=== PATIENT | female | born 1980 | race Caucasian/White ===

== ENCOUNTER 2022-04-30 21:16 | Inpatient (IN) ==
[2022-04-30] MEDS ORDERED: Furosemide 40 mg/4 ml IV VIAL IV ONE (21:24)
[2022-04-30] MEDS ORDERED: Albuterol/Ipratropium NEB.SOL (2.5/0.5 MG) 3 ML NEB.SOLN INH ONE (21:32)
[2022-04-30] MEDS ORDERED: methylPREDNISolone SOD SUCC 125 mg 2 ML VIAL IV ONE (21:32)
[2022-04-30] MEDS ORDERED: Piperacillin/Tazobac ADVAN 3.375 GM in NS 0.9% 100 ml BAG 100 ML IV ONE (21:33)
[2022-04-30] MEDS ORDERED: Lorazepam PYXIS KEY PRN (21:35)
[2022-04-30] MEDS ORDERED: LORazepam 2 mg VIAL 1 ml IV PUSH ONE (21:35)
[2022-04-30 21:49] LABS: PCO2 Arterial 32 mmHg (35-45); PO2 Arterial 180 mmHg (80-100)
[2022-04-30 22:02] LABS: Hematocrit 26 % (35-47); Hemoglobin 7.3 g/dL (12.0-16.0); Mean Corpuscular HGB Conc 29 g/dL (31-36); Mean Corpuscular Hemoglobin 21 pg (27-31); Mean Corpuscular Volume 74 fL (80-97); Mean Platelet Volume 8.8 fL (7.4-10.4); Platelet Count 173 10^3/uL (150-450); Red Blood Count 3.47 10^6 /uL (3.70-4.87); Red Cell Distribution Width 24 % (10-15); White Blood Count 9.6 10^3/uL (3.5-10.8)
[2022-04-30] MEDS ORDERED: Piperacillin/Tazobac 3.375 GM BAG ONE (22:04)
[2022-04-30 22:17] LABS: High Sens Troponin Baseline 19 pg/mL (<15)
[2022-04-30 22:25] LABS: Hypochromasia 2+; Microcytosis 2+
[2022-04-30 22:26] LABS: ABS Eosinophils 0.1 10^3/ul (0-0.6); ABS Lymphocytes 1.1 10^3/ul (1.0-4.8); ABS Monocytes 0.8 10^3/ul (0-0.8); ABS Neutrophils 7.6 10^3/ul (1.5-7.7); Anisocytosis 2+; Eosinophil % 0.6 %; Lymphocyte % 11.6 %; Nucleated Red Blood Cells % 0.4; Polychromasia 1+
[2022-04-30] MEDS ORDERED: HYDROmorphone 1 MG/1 ML SYRINGE IV ONE (22:44)
[2022-04-30 22:45] LABS: ALT 30 U/L (7-52); Albumin 3.1 g/dL (3.2-5.2); Albumin/Globulin Ratio 0.8 (1-3); Alkaline Phosphatase 130 U/L (35-149); Blood Urea Nitrogen 27 mg/dL (6-24); C Reactive Protein 49.92 mg/L (<8.01); CO2 Carbon Dioxide 26 mmol/L (22-32); Calcium 7.9 mg/dL (8.6-10.3); Chloride 103 mmol/L (101-111); Creatinine, Serum 1.01 mg/dL (0.51-0.95); Globulin 3.8 g/dL (2-4); Glucose 80 mg/dL (70-100); Sodium 135 mmol/L (135-145); Total Protein 6.9 g/dL (6.4-8.9); eGFR CKD-EPI 70.8 (>60)
[2022-04-30 23:14] LABS: Anion Gap 6 mmol/L (2-11)
[2022-04-30 23:28] LABS: High Sensitivity Troponin 1 Hr 20 pg/mL (<15)
[2022-04-30 23:35] LABS: Urine Benzodiazepine Screen None Detected (None Detect); Urine Cannabinoids Screen None Detected (None Detect); Urine Opiates Screen None Detected (None Detect)
[2022-04-30] MEDS ORDERED: Iodixanol (CONTRAST) 320 MG/ML 100 ML SDV IV ONE (23:37)
[2022-04-30] MEDS ORDERED: Dexmedetomidine 1,000 MCG in NS 0.9% 250 ml 240 ML IV SCH (23:45)
[2022-04-30] MEDS ORDERED: Acetaminophen IV 1 GM/100ML 1,000 MG/100 ML BAG IV ONE (23:48)
[2022-04-30 23:51] LABS: Urine Appearance Clear; Urine Bilirubin Negative (Negative); Urine Blood Negative (Negative); Urine Color Straw; Urine Glucose Negative (Negative); Urine Ketones Negative (Negative); Urine Nitrite Negative (Negative); Urine Protein Negative (Negative); Urine Specific Gravity 1.005 (1.002-1.030); Urine Urobilinogen Negative (Negative)
[2022-04-30] MEDS ORDERED: Albuterol/Ipratropium NEB.SOL (2.5/0.5 MG) 3 ML NEB.SOLN INH PRN (23:52)
[2022-04-30 23:59] LABS: Corrected Retic Count 1.4 % (0.5-1.5); Hematocrit for Retic CNT 25 % (35-47); Immature Retic Fraction 0.65; RBC Retic Count 3.43 10^6/uL (3.70-4.87)
[2022-05-01 00:13] LABS: Prealbumin 9 mg/dL (18-38)
[2022-05-01 00:14] LABS: Iron < 20 ug/dL (50-212)
[2022-05-01 00:20] LABS: Activated Partial Thrombo Time 35.8 seconds (26.0-38.0)
[2022-05-01 00:22] LABS: Creatine Kinase 77 U/L (10-223)
[2022-05-01 00:27] LABS: Magnesium 1.7 mg/dL (1.9-2.7); Potassium Redraw 3.3 mmol/L (3.5-5.0)
[2022-05-01 00:29] LABS: TSH Ultra Thyroid Stim Horm 2.82 mcIU/mL (0.34-5.60)
[2022-05-01 00:31] LABS: Free T4 0.98 ng/dL (0.61-1.12)
[2022-05-01 00:34] LABS: Ferritin 13.9 ng/mL (11-307)
[2022-05-01 00:54] LABS: HIV 4th Generation Nonreactive (Nonreactive)
[2022-05-01] MEDS ORDERED: Zosyn per Pharmacy NOTE FOLLOW UP SCH (01:00)
[2022-05-01 01:48] LABS: Hepatitis A Ab IgM Negative (Negative); Hepatitis B Core IgM Nonreactive (Nonreactive)
[2022-05-01] MEDS ORDERED: Magnesium Sulfate IV 1GM/100ML 1 GM/100 ML BAG IV ONE (01:56)
[2022-05-01 02:00] LABS: Hepatitis B Surface Ab Not Immune (Immune); Hepatitis B Surface Antigen Nonreactive (Nonreactive)
[2022-05-01] MEDS: ZOSYN 3.375 GM Q8H per EXTENDED INFUSION IV SCH ×2 (02:08→09:24)
[2022-05-01] MEDS ORDERED: guaiFENesin 100 mg/5 ml LIQ unit dose cup PO PRN (02:55)
[2022-05-01 05:03] LABS: Hepatitis C Antibody Reactive (Negative)
[2022-05-01 05:54] LABS: Hematocrit 28 % (35-47); Hemoglobin 8.1 g/dL (12.0-16.0); Mean Corpuscular HGB Conc 29 g/dL (31-36); Mean Corpuscular Hemoglobin 22 pg (27-31); Mean Corpuscular Volume 76 fL (80-97); Mean Platelet Volume 8.4 fL (7.4-10.4); Platelet Count 128 10^3/uL (150-450); Red Blood Count 3.68 10^6 /uL (3.70-4.87); Red Cell Distribution Width 25 % (10-15); White Blood Count 6.4 10^3/uL (3.5-10.8)
[2022-05-01 06:12] LABS: INR 2.93 (0.88-1.18)
[2022-05-01 06:38] LABS: ALT 25 U/L (7-52); AST 22 U/L (13-39); Albumin/Globulin Ratio 0.9 (1-3); Alkaline Phosphatase 100 U/L (35-149); Anion Gap 6 mmol/L (2-11); Blood Urea Nitrogen 28 mg/dL (6-24); CO2 Carbon Dioxide 27 mmol/L (22-32); Calcium 7.6 mg/dL (8.6-10.3); Chloride 102 mmol/L (101-111); Creatinine, Serum 1.11 mg/dL (0.51-0.95); Globulin 3.4 g/dL (2-4); Glucose 232 mg/dL (70-100); Phosphorus 2.6 mg/dL (2.5-5.0); Potassium 3.2 mmol/L (3.5-5.0); Sodium 135 mmol/L (135-145); Total Protein 6.4 g/dL (6.4-8.9); eGFR CKD-EPI 63.2 (>60)
[2022-05-01] MEDS ORDERED: Potassium Chlor 20 meq TAB.ER PO ONE (06:42)
[2022-05-01] MEDS ORDERED: KCL 10 MEQ/50 ML IVPREMIX 10 MEQ/50 ML BAG IV ONE (06:42)
[2022-05-01] MEDS ORDERED: Vancomycin 1,000 MG in NS 0.9% 250 ml 250 ML IVPB ONE (07:42)
[2022-05-01] MEDS ORDERED: Vancomycin per Pharmacy 1 EA NOTE FOLLOW UP SCH (08:00)
[2022-05-01] MEDS ORDERED: methylPREDNISolone SOD SUCC 40 mg/ml 1 ml VIAL IV SCH (08:00)
[2022-05-01] MEDS ORDERED: methylPREDNISolone SOD SUCC 125 mg 2 ML VIAL IV SCH (09:00)
[2022-05-01] MEDS ORDERED: Cefepime 1 GM in Dextrose 1 GM/50 ML BAG IV SCH (09:00)
[2022-05-01 09:07] LABS: Folate > 20.00 ng/mL (5.90-24.80)
[2022-05-01 09:08] LABS: Vitamin B12 675 pg/mL (180-914)
[2022-05-01] MEDS: Senna TAB 8.6 mg TAB PO SCH ×2 (09:35→20:15)
[2022-05-01] MEDS: Polyethylene Glycol 3350 17 GM PACKET PO SCH (09:35)
[2022-05-01] MEDS: methylPREDNISolone SOD SUCC 40 mg/ml 1 ml VIAL IV SCH (10:04)
[2022-05-01] MEDS: DOXYcycline 100 MG in NS 0.9% 250 ml 250 ML IVPB SCH ×2 (11:05→20:19)
[2022-05-01] MEDS: guaiFENesin/CODIENE 100mg/10mg 5 ML UDC PO PRN (14:12)
[2022-05-01] MEDS: Iron Sucrose 200 MG in NS 0.9% 100 ml BAG 100 ML IVPB SCH (16:23)
[2022-05-01] MEDS: fentaNYL 100 mcg/2 ml 50 MCG/ML VIAL IV SLOW PU PRN (18:03)
[2022-05-01] MEDS: Phenol 1.4% Throat Spray BTL MT PRN (20:05)
[2022-05-01] MEDS ORDERED: HYDROmorphone 0.5 MG/0.5 ML SYRINGE IV SLOW PU ONE (20:52)
[2022-05-01] MEDS: CEFEPIME 2 GM in Dextrose 50 mL IV SCH (22:08)
[2022-05-02] MEDS: guaiFENesin/CODIENE 100mg/10mg 5 ML UDC PO PRN ×4 (00:24→23:33)
[2022-05-02] MEDS: fentaNYL 100 mcg/2 ml 50 MCG/ML VIAL IV SLOW PU PRN (05:54)
[2022-05-02 06:56] LABS: INR 1.56 (0.88-1.18)
[2022-05-02 07:23] LABS: Calcium 8.2 mg/dL (8.6-10.3); Creatinine, Serum 1.14 mg/dL (0.51-0.95); Magnesium 1.9 mg/dL (1.9-2.7); Potassium 4.3 mmol/L (3.5-5.0); eGFR CKD-EPI 61.3 (>60)
[2022-05-02 07:25] LABS: Hematocrit 31 % (35-47); Hemoglobin 8.7 g/dL (12.0-16.0); Mean Corpuscular HGB Conc 28 g/dL (31-36); Mean Corpuscular Hemoglobin 22 pg (27-31); Mean Corpuscular Volume 77 fL (80-97); Mean Platelet Volume 8.8 fL (7.4-10.4); Platelet Count 139 10^3/uL (150-450); Red Blood Count 4.02 10^6 /uL (3.70-4.87); Red Cell Distribution Width 25 % (10-15); White Blood Count 13.7 10^3/uL (3.5-10.8)
[2022-05-02 07:48] LABS: Anisocytosis 2+; Hypochromasia 2+; Microcytosis 1+; Polychromasia 1+
[2022-05-02 07:49] LABS: ABS Lymphocytes 0.8 10^3/ul (1.0-4.8); ABS Monocytes 0.7 10^3/ul (0-0.8); ABS Neutrophils 12.1 10^3/ul (1.5-7.7); ABS Nucleated RBC 0.1 10^3/ul; Lymphocyte % 6.2 %
[2022-05-02] MEDS: CEFEPIME 2 GM in Dextrose 50 mL IV SCH (07:59)
[2022-05-02] MEDS: Senna TAB 8.6 mg TAB PO SCH ×2 (09:44→20:41)
[2022-05-02] MEDS: Iron Sucrose 200 MG in NS 0.9% 100 ml BAG 100 ML IVPB SCH (09:47)
[2022-05-02] MEDS: methylPREDNISolone SOD SUCC 40 mg/ml 1 ml VIAL IV SCH (10:09)
[2022-05-02] MEDS: Polyethylene Glycol 3350 17 GM PACKET PO SCH (10:09)
[2022-05-02] MEDS: DOXYcycline 100 MG in NS 0.9% 250 ml 250 ML IVPB SCH (10:21)
[2022-05-02] MEDS: Phenol 1.4% Throat Spray BTL MT PRN ×2 (10:22→15:14)
[2022-05-02] MEDS ORDERED: Vancomycin 1,500 MG in NS 0.9% 250 ml 250 ML IVPB ONE (11:00)
[2022-05-02] MEDS ORDERED: Vancomycin per Pharmacy 1 EA NOTE FOLLOW UP PRN (12:41)
[2022-05-02] MEDS ORDERED: Sulfur Hexaflouride MICROSPHR 25 MG VIAL ONE (14:07)
[2022-05-02] MEDS: Acetaminophen IV 1 GM/100ML 1,000 MG/100 ML BAG IV SCH ×2 (14:46→23:29)
[2022-05-02] MEDS ORDERED: Magnesium Sulfate IV 1GM/100ML 1 GM/100 ML BAG IV ONE (15:08)
[2022-05-03] MEDS: guaiFENesin/CODIENE 100mg/10mg 5 ML UDC PO PRN ×2 (05:46→14:14)
[2022-05-03] MEDS: Acetaminophen IV 1 GM/100ML 1,000 MG/100 ML BAG IV SCH ×3 (05:46→21:32)
[2022-05-03] MEDS ORDERED: Vancomycin Random Level NOTE FOLLOW UP ONE (06:00)
[2022-05-03 06:55] LABS: INR 1.33 (0.88-1.18)
[2022-05-03 07:00] LABS: Hematocrit 31 % (35-47); Mean Corpuscular HGB Conc 29 g/dL (31-36); Mean Corpuscular Hemoglobin 22 pg (27-31); Mean Corpuscular Volume 77 fL (80-97); Mean Platelet Volume 8.6 fL (7.4-10.4); Platelet Count 144 10^3/uL (150-450); Red Blood Count 4.02 10^6 /uL (3.70-4.87); Red Cell Distribution Width 26 % (10-15); White Blood Count 9.3 10^3/uL (3.5-10.8)
[2022-05-03 07:17] LABS: ABS Basophils 0.1 10^3/ul (0-0.2); ABS Eosinophils 0.1 10^3/ul (0-0.6); ABS Lymphocytes 0.8 10^3/ul (1.0-4.8); ABS Monocytes 0.5 10^3/ul (0-0.8); ABS Neutrophils 7.8 10^3/ul (1.5-7.7); ABS Nucleated RBC 0.2 10^3/ul; Eosinophil % 1.2 %; Lymphocyte % 9.1 %; Nucleated Red Blood Cells % 2.1
[2022-05-03 07:18] LABS: Anisocytosis 2+; Microcytosis 1+; Polychromasia 1+
[2022-05-03 07:19] LABS: Hypochromasia 2+
[2022-05-03 07:29] LABS: Calcium 8.1 mg/dL (8.6-10.3); Creatinine, Serum 1.06 mg/dL (0.51-0.95); Potassium 4.5 mmol/L (3.5-5.0); Vancomycin Random 14.5 mcg/mL; eGFR CKD-EPI 66.8 (>60)
[2022-05-03] MEDS: Senna TAB 8.6 mg TAB PO SCH ×2 (08:23→21:27)
[2022-05-03] MEDS: Iron Sucrose 200 MG in NS 0.9% 100 ml BAG 100 ML IVPB SCH (08:23)
[2022-05-03] MEDS: Polyethylene Glycol 3350 17 GM PACKET PO SCH ×2 (08:24→08:29)
[2022-05-03] MEDS ORDERED: Vancomycin 1,250 MG in NS 0.9% 250 ml 250 ML IVPB ONE (12:00)
[2022-05-03 13:56] LABS: TB2 Ag minus Nil Result 0.01 IU/mL
[2022-05-03 14:11] LABS: QuantiferonTb Gold Plus Result Negative (Negative)
[2022-05-04] MEDS ORDERED: Vancomycin Random Level NOTE FOLLOW UP ONE (06:00)
[2022-05-04] MEDS: Acetaminophen IV 1 GM/100ML 1,000 MG/100 ML BAG IV SCH ×3 (06:03→20:47)
[2022-05-04 06:24] LABS: Hematocrit 32 % (35-47); Hemoglobin 9.4 g/dL (12.0-16.0); Mean Corpuscular HGB Conc 30 g/dL (31-36); Mean Corpuscular Hemoglobin 23 pg (27-31); Mean Corpuscular Volume 79 fL (80-97); Mean Platelet Volume 8.4 fL (7.4-10.4); Platelet Count 155 10^3/uL (150-450); Red Blood Count 4.01 10^6 /uL (3.70-4.87); Red Cell Distribution Width 26 % (10-15); White Blood Count 7.7 10^3/uL (3.5-10.8)
[2022-05-04 06:26] LABS: ABS Basophils 0.1 10^3/ul (0-0.2); ABS Eosinophils 0.2 10^3/ul (0-0.6); ABS Lymphocytes 1.4 10^3/ul (1.0-4.8); ABS Monocytes 0.6 10^3/ul (0-0.8); ABS Neutrophils 5.5 10^3/ul (1.5-7.7); ABS Nucleated RBC 0.2 10^3/ul; Lymphocyte % 18.1 %; Nucleated Red Blood Cells % 2.5
[2022-05-04 06:33] LABS: INR 1.78 (0.88-1.18)
[2022-05-04 06:50] LABS: Calcium 8.3 mg/dL (8.6-10.3); Creatinine, Serum 1.07 mg/dL (0.51-0.95); eGFR CKD-EPI 66.1 (>60)
[2022-05-04 06:51] LABS: Potassium 5.2 mmol/L (3.5-5.0)
[2022-05-04] MEDS ORDERED: Furosemide 20 mg/2 ml IV VIAL IV ONE (08:51)
[2022-05-04] MEDS: Polyethylene Glycol 3350 17 GM PACKET PO SCH (09:09)
[2022-05-04] MEDS: Senna TAB 8.6 mg TAB PO SCH ×2 (09:09→20:40)
[2022-05-04] MEDS: Iron Sucrose 200 MG in NS 0.9% 100 ml BAG 100 ML IVPB SCH (09:16)
[2022-05-04] MEDS ORDERED: SODIUM ZIRCONIUM CYCLOSILICATE 10 GM PACKET PO ONE ×2 (09:44→16:21)
[2022-05-04] MEDS: Vancomycin 1000 MG in NS 0.9% 250 ML IVPB SCH (12:25)
[2022-05-04 15:57] LABS: Calcium 8.2 mg/dL (8.6-10.3); Creatinine, Serum 1.17 mg/dL (0.51-0.95); eGFR CKD-EPI 59.4 (>60)
[2022-05-04 16:04] LABS: Potassium 5.1 mmol/L (3.5-5.0)
[2022-05-05] MEDS: Acetaminophen IV 1 GM/100ML 1,000 MG/100 ML BAG IV SCH ×3 (05:36→21:15)
[2022-05-05 06:49] LABS: Hematocrit 32 % (35-47); Hemoglobin 9.3 g/dL (12.0-16.0); Mean Corpuscular HGB Conc 29 g/dL (31-36); Mean Corpuscular Hemoglobin 23 pg (27-31); Mean Corpuscular Volume 79 fL (80-97); Mean Platelet Volume 8.7 fL (7.4-10.4); Platelet Count 150 10^3/uL (150-450); Red Blood Count 4.04 10^6 /uL (3.70-4.87); Red Cell Distribution Width 26 % (10-15); White Blood Count 8.2 10^3/uL (3.5-10.8)
[2022-05-05 07:14] LABS: INR 1.63 (0.88-1.18)
[2022-05-05 08:22] LABS: Calcium 8.3 mg/dL (8.6-10.3); Creatinine, Serum 1.16 mg/dL (0.51-0.95); Potassium 4.7 mmol/L (3.5-5.0)
[2022-05-05] MEDS: Senna TAB 8.6 mg TAB PO SCH ×2 (09:05→21:10)
[2022-05-05] MEDS: Iron Sucrose 200 MG in NS 0.9% 100 ml BAG 100 ML IVPB SCH (09:06)
[2022-05-05 09:07] LABS: ABS Basophils 0.1 10^3/ul (0-0.2); ABS Eosinophils 0.1 10^3/ul (0-0.6); ABS Lymphocytes 1.4 10^3/ul (1.0-4.8); ABS Monocytes 0.7 10^3/ul (0-0.8); ABS Neutrophils 5.8 10^3/ul (1.5-7.7); ABS Nucleated RBC 0.1 10^3/ul; Anisocytosis 2+; Eosinophil % 1.7 %; Lymphocyte % 17.4 %; Microcytosis 1+; Nucleated Red Blood Cells % 1.6; Polychromasia 2+
[2022-05-05] MEDS: Polyethylene Glycol 3350 17 GM PACKET PO SCH (09:58)
[2022-05-05] MEDS: Vancomycin 1000 MG in NS 0.9% 250 ML IVPB SCH (11:42)
[2022-05-05] MEDS ORDERED: Furosemide 40 mg/4 ml IV VIAL IV ONE (11:54)
[2022-05-06] MEDS: Acetaminophen IV 1 GM/100ML 1,000 MG/100 ML BAG IV SCH (05:27)
[2022-05-06 07:19] LABS: ABS Basophils 0.1 10^3/ul (0-0.2); ABS Eosinophils 0.2 10^3/ul (0-0.6); ABS Lymphocytes 1.7 10^3/ul (1.0-4.8); ABS Monocytes 0.8 10^3/ul (0-0.8); ABS Neutrophils 6.5 10^3/ul (1.5-7.7); ABS Nucleated RBC 0.2 10^3/ul; Eosinophil % 1.8 %; Hematocrit 35 % (35-47); Hemoglobin 10.1 g/dL (12.0-16.0); Lymphocyte % 18.3 %; Mean Corpuscular HGB Conc 29 g/dL (31-36); Mean Corpuscular Hemoglobin 24 pg (27-31); Mean Corpuscular Volume 81 fL (80-97); Mean Platelet Volume 8.8 fL (7.4-10.4); Nucleated Red Blood Cells % 1.9; Platelet Count 158 10^3/uL (150-450); Red Blood Count 4.26 10^6 /uL (3.70-4.87); Red Cell Distribution Width 27 % (10-15); White Blood Count 9.2 10^3/uL (3.5-10.8)
[2022-05-06 07:22] LABS: Calcium 8.5 mg/dL (8.6-10.3); Creatinine, Serum 1.25 mg/dL (0.51-0.95); Potassium 4.8 mmol/L (3.5-5.0); eGFR CKD-EPI 54.8 (>60)
[2022-05-06] MEDS: Senna TAB 8.6 mg TAB PO SCH (08:57)
[2022-05-06] MEDS: Polyethylene Glycol 3350 17 GM PACKET PO SCH ×2 (08:58→09:09)
[2022-05-06] MEDS: Iron Sucrose 200 MG in NS 0.9% 100 ml BAG 100 ML IVPB SCH (09:07)
[2022-05-06 11:08] VITALS: BP 121/99
[2022-05-06] MEDS ORDERED: Vancomycin Trough Check NOTE FOLLOW UP ONE (11:30)
[2022-05-06] MEDS: Vancomycin 1000 MG in NS 0.9% 250 ML IVPB SCH (11:33)
== END 2022-05-06 13:40 | disposition home or self-care (01) | DRG 194 ==
LOC: ED 21:16 → EDHOLD 23:32 → SUATTDRO 23:32 → ICU 05-01 00:58 → MEDTELE 05-01 15:39
PROVIDERS: ADMIT Internal Medicine Critical Care Medicine; ATTEND Internal Medicine